=== PATIENT | female | born 1950 | race Caucasian/White ===

== ENCOUNTER 2022-01-03 09:59 | Outpatient (CLI) | payer MEDICARE, OTHER, SELFPAY ==
--- OUTSIDE RECORDS SUMMARY | 2021-12-01 09:37 | XMS_ITS | Continuity of Care Document ---
:1950 Author Allergies, Adverse Reactions, Alerts Allergen Type Severity Reaction Last Updated Verified Status No Known Drug Allergy Unknown July Yes Active Allergy 2021 Social History Smoking Status Status Start Date End Date Date of Observat ion Never smoked tobacco August 042021 (finding) 3:00pm Additional Data Assigned Sex Female Problems Active Problems Medical Problem Onset Date Status Obesity with body mass index greater Act lyn than 30 Breast cancer 2018 Active Pre-diabetes 2016 Active Osteopenia 2018 Active Health care directive on file September 10, 2014 Resolved History of appendectomy 1960 Resolved History of lumpectomy of left breast February 16, 2019 Res olved History of arthroscopic knee surgery June, Res olved History of sinus surgery 2011 Resolved History of hand surgery October 22, 2011 Resolved History of phacoemulsification of 2009 [facility] ed cataract of both eyes with intraocular lens implantation Inactive/Resolved Problems Medical Problem Onset Date Status Encounter for screening for Resolved COVID-19 Chest tightness Resolved Medications Medication Status Dose Units Route Directions Qty Days Start End Ins tructions Date Date Acetaminophen Active 650 MG PO As Needed (Tylenol 8 Hour Arthritis) 650 Mg TAB Calcium Active 1 TAB PO Twice A Day Carbonate-Cho lecalcife (Calcium Carbonate/D3) 1 Tab TAB Ibuprofen Active 200-40 MG PO Every 6 100 0 Hours as needed Magnesium Active 1 CAP PO As Needed Glycinate (Magnesium Glycinate 665 Mg) 1 Cap CAP Multiple Active 1 TAB PO Daily Vitamin (Multi Vitamin) 1 Tab TAB Omeprazole Active 20 MG PO Every August Morning 2021 11:42am Tamoxifen Active 20 MG PO Daily 06 February Citrate 2020 1:35pm Zoledronic Active Unknow IV Ever 6 Acid n Dose Months Amoxicillin/C Disconti 1 TAB PO Twice Daily 20 Februar M arch lavulanate nued For 10 Days y , , 2021 (Amoxicillin 2:53pm 10:56a & Pot m Clavulanate) 875 Mg/125 Mg TAB Amoxicillin/C Disconti 1 TAB PO Twice Daily August il lavulanate nued For 10 Days , , Potassium 2019 2019 (Amoxicillin 2:19pm 10:56a & Pot m Clavulanate) 875 Mg/125 Mg TAB Anastrozole Disconti 1 MG OR Daily 90 90 Decembe January nued r , , 2018 2020 6:21pm 12:52p m Anastrozole Disconti 1 MG OR Daily 90 90 Decembe Decemb nued r 9, er 2019 , 3:22pm 2018 6:21pm Calcium Disconti 600 MG PO Daily August Carbonate nued 2021 10:56a m Ferrous Disconti Unknow PO 3 X Weekly November Sulfate (Iron nued n Dose , (Ferrous 2020 Sulfate)) 1:08pm Unknown Strength TAB Fish Oil Disconti 2000 MG PO Daily January nued 2019 1:11pm Guaifenesin/C Disconti 1-2 TSP PO Every June a As needed for odeine nued Hours as , cough, Phosphate needed 2021, caution (Guaifenesin- 3:23pm 2021 sedat ing Codeine) 100 2:37pm Mg/10 Mg/5 Ml SOLN Influenza Disconti 0.7 ML IM Once 1 Virus Vac nued r 2nd, er Split High 2019 07, (Fluzone 10:09am 2019 High-Dose Pf 10:35a 2019 0.7 Ml) m 1 Inj INJ Influenza Disconti 0.5 ML IM Once Virus Vaccine nued er [place] Split , (Fluzone 2018 2018 High-Dose Pf 3:57pm 4:33pm 2018 0.5 Ml) 1 Inj INJ Naproxen Disconti 500 MG PO Twice Daily November nued With Meals r , 2019 10:25am 1:08pm Omeprazole Disconti 20 MG PO Every 60 June nued Morning , , 2021 2021 3:22pm 10:56a m Omeprazole Disconti 20 MG PO Daily nued y 2021 3:22pm Ondansetron Disconti 4 MG PO Every 8 August Hcl nued Hours as , , (Ondansetron needed 2019 2019 Odt) 4 Mg TAB 2:19pm 10:56a m Pneumococcal Disconti 0.5 ML IM Once 1 Polyvalent nued r , er Vaccine 2019 07, (Pneumovax 10:09am 2019) 25 10:35a Mcg/0.5 Ml m INJ Pneumococcal Disconti 0.5 ML IM Once Polyvalent nued er [place] Vaccine , , (Prevnar 13) 2018 2018 0.5 Ml INJ 3:58pm 4:33pm Probiotic Disconti 1 TAB OR Daily January Product nued , (Probiotic) 2019 CAP 1:11pm Turmeric Disconti Unknow PO Daily November (Curcuma nued n Dose , ) 2020 (Turmeric) 1:08pm Unknown Strength CAP Immunizations Immunization Event Date Not Given Dose Tour Consultant Lot Vac cine Reason Number Number Informatio n Statement (VIS) Deta il COVID-19 Moderna August 10, 2020 COVID-19 Moderna September 09, 2020 COVID-19 Moderna April 122020 Herpes Zoster July 112014 Influenza April 10, 6 2017 Influenza February 14 SANOFI 2018 Influenza April 11, SANOFI 2019 Influenza April 182020 Influenza February 082009 Influenza May 112012 Influenza March 10, 2014 Influenza July 16, 2016 Influenza May 14, 2016 Influenza April 11, 2019 Prevnar Adult February 08 [facility] [id number] 2018 Pneumovax Adult April 11, MERCK [id number] 2019 Shingrix December 08, 2019 Shingrix February 092019 Shingrix July Reason Tetanus/Diptheri February 04, 3 a 2011 Tetanus/Diptheri June 21, 1 a 2004 Tetanus/Diptheri December 03, 2 a 2005 Tdap February 04, 1 (adolescent/adul 2011 t) Advance Directives Advance Directive Response Recorded Date/Time Has patient completed a Yes August 04, 022 3:00pm Health Care Directive? Insurance Providers Guarantor Maverick Lau Address [address] [place] [id number] Contact Info. Home Phone: Payer Policy Id Coverage Subscriber's Subscriber Effective Expira tion Id Name Id Date Date Medicare [id number] Maverick [employer] [id number] Maverick Lau Plan of Treatment Future Tests Future scheduled test information is unavailable Pending Tests Pending diagnostic test information is unavailable Future Visits Future appointment information is unavailable Referrals to Other Providers Reason for Referral Start Provider Provider Contact Provider Address Referral Date Information Meaghan Cortez Work Phone: [facility] [address] [facility] [phone] Future Procedures Procedure Name Scheduled Date MARISELA Bilat Mammo Scrn Future Medications Future medication information is unavailable Patient Instructions See Additional Instructions Chest Pain (ED) Denosumab (By injection)
--- NOTE | 2022-01-03 10:15 | CRLHL7_ITS ---
For Patients: As a result of the Century Cures Act, medical imaging exams and procedure reports are released immediately into your electronic medical record. You may view this report before your referring provider. If you have questions, please contact your health care provider. BILATERAL MAMMOGRAM WITH COMPUTER-AIDED DETECTION AND TOMOSYNTHESIS TECHNIQUE: CC and MLO views were obtained. These mammographic images have been obtained using full-field digital technique. These mammographic images were interpreted with the benefit of computer-aided detection. Breast tomosynthesis was used in this interpretation. COMPARISON FILM: 01/02/21, 01/01/20, 12/26/18. FINDINGS: The breasts are heterogeneously dense, which may obscure small masses. IMPRESSION: There is no radiographic evidence for malignancy. ASSESSMENT: BI-RADS Category 2: Benign RECOMMENDATION: Routine screening mammogram in 1 year. A lay language report of this examination will be provided to the patient. Sukhwinder Crocker M.D. Diagnostic/Musculoskeletal Radiologist [email or web address] Transcribed: 9:[address]/Dictated by: Sukhwinder Crocker MD @ 01/03/2022 11:04:00 AM (Electronically Signed)
== END 2022-01-03 10:00 | disposition home or self-care (01) ==
LOC: MAMMO 10:01
PROVIDERS: PCP Internal Medicine; Visit Provider Internal Medicine
DX: Z12.31 Encounter for screening mammogram for malignant neoplasm of breast (principal); R92.2 Inconclusive mammogram
CPT/HCPCS: 77063; 77067

== ENCOUNTER 2022-02-02 10:21 | Outpatient (RCR) | payer MEDICARE, OTHER, SELFPAY ==
--- NOTE | 2022-01-30 11:55 | URNOTE ---
Received request for prior auth for [employer] ([id number]). Pt had Medicare primary. Prior authorization is not required as services are based on medical necessity.
[2022-02-02 11:05] LABS: Albumin* 3.9 g/dL (3.3-5.0); Chloride* 102 mmol/L (96-114); Potassium* 4.2 mmol/L (3.6-5.1); Sodium* 138 mmol/L (135-149)
[2022-02-02 11:07] LABS: Bilirubin Total* 0.4 mg/dL (0.1-1.5); Carbon Dioxide* 29 mmol/L (20-32); Creatinine* 0.9 mg/dL (0.5-1.5); Est. Creatinine Clearance* 47.78; Estimated Glomerular Filt Rate 69 ml/min
[2022-02-02 11:08] LABS: Alanine Aminotransferase* 20 U/L (4-35); Alkaline Phosphatase* 64 U/L (40-150); Aspartate Amino Transferase* 27 U/L (12-35); Blood Urea Nitrogen* 26 mg/dL (7-30); Calcium* 8.6 mg/dL (8.4-10.6); Glucose* 109 mg/dL (60-115); Total Protein* 6.9 g/dL (6.0-8.3)
[2022-02-02] MEDS: ZOLEDRONIC ACID 3.3 MG in 0.9 % SODIUM CHLORIDE 100 ml 100 ML 420 MG IVPB (12:34)
--- NOTE | 2022-07-23 14:42 | ONC.NURNOTE ---
Data Entry Email Processor called patient to schedule the patient, and she is currently in [place]. Patients appointment moved to August per provider and patient availability.
== END 2022-08-01 23:59 | disposition home or self-care (01) ==
LOC: CCIC 10:21
PROVIDERS: PCP Internal Medicine; Referring Provider Internal Medicine; Visit Provider Nurse Practitioner Family
DX: C50.912 Malignant neoplasm of unspecified site of left female breast (principal); Z17.0 Estrogen receptor positive status [ER+]; Z79.810 Long term (current) use of selective estrogen receptor modulators (SERMs)
CPT/HCPCS: 36415; 80053; 96374; 99212; 99214; J3489

== ENCOUNTER 2022-02-15 12:53 | Outpatient (CLI) | payer MEDICARE, OTHER, SELFPAY ==
--- NOTE | 2022-02-15 13:00 | CRLHL7_ITS ---
For Patients: As a result of the Century Cures Act, medical imaging exams and procedure reports are released immediately into your electronic medical record. You may view this report before your referring provider. If you have questions, please contact your health care provider. DXA BONE MINERAL DENSITY STUDY Current height (in): 66. Weight (lb): 186. Menopause age: 53. Ethnicity: White. 1. Have you had a previous hip or vertebral fracture? No. 2. Have you had any fractures during your adult life which did not result from significant trauma (e.g., auto accident)? No. 3. Did either of your parents have a hip fracture? No. 4. Do you smoke? No. 5. Have you ever taken Glucocorticoids? No. 6. Do you have rheumatoid arthritis? No. 7. Do you have secondary osteoporosis? No. 8. Do you drink 3 or more alcoholic drinks per day? No. 9. Are you being treated for osteoporosis? No. 10. Have you ever taken any of the following medications: Actonel, Evista, Fosamax, Miacalcin, Reclast, Boniva, Forteo, HRT (i.e. estrogen/hormone therapy), Protelos, Prolia, Vitamin D, Calcium, other ??? please specify. ANSWER: Yes, vitamin D, calcium. 11. Do you have any of the following medical conditions: Anorexia or bulimia, asthma or emphysema, end stage renal disease, hyperparathyroidism, any seizure disorders, cancer, inflammatory bowel diseases, hysterectomy, other ??? please specify. ANSWER: Yes, cancer. 12. What was your maximum height (inches)? 66. 13. Do you perform weight bearing exercise regularly? No. 14. Do you regularly consume dairy products? Yes. 15. Do you drink caffeinated beverages? Yes. 16. At what age did your period start? 13. 17. Are you premenopausal? No. 18. How many full term pregnancies have you had? 0. 19. Have you ever missed your period for more than 6 months in a row (not including or menopause)? No. TECHNIQUE: Bone mineral density study was performed using the [employer]. FINDINGS: The results of the study expressed as bone mineral density (BMD) are as follows: Lumbar spine L1 to L4: BMD: 1.214 g/cm2. T-score: 1.5. Z-score: 3.6. Neck Left: BMD: 0.650 g/cm2. T-score: -1.8. Z-score: -0.0. Right: BMD: 0.668 g/cm2. T-score: -1.6. Z-score: 0.1. Total Left: BMD: 0.854 g/cm2. T-score: -0.7. Z-score: 0.7. Right: BMD: 0.819 g/cm2. T-score: -1.0. Z-score: 0.4. IMPRESSION: Osteopenia. FRAX 10-year Fracture Risk Major Osteoporotic Fracture: 10 percent Hip Fracture: 1.5 percent Reported Risk Factors: [place] () Neck BMD = 0.650, BMI = 30.0 Yehuda Sumner M.D. Diagnostic Radiologist [email or web address] MICHELLE/Dictated by: Yehuda Sumner MD @ 02/15/2022 3:38:00 PM (Electronically Signed)
== END 2022-02-15 12:54 | disposition home or self-care (01) ==
LOC: RAD 12:54
PROVIDERS: PCP Internal Medicine; Visit Provider Nurse Practitioner Family
DX: Z85.3 Personal history of malignant neoplasm of breast (principal); Z79.811 Long term (current) use of aromatase inhibitors
CPT/HCPCS: 77080

== ENCOUNTER 2022-09-06 10:34 | Outpatient (CLI) | payer MEDICARE, OTHER, SELFPAY ==
--- NOTE | 2022-09-06 10:45 | CRLHL7_ITS ---
For Patients: As a result of the Cures Act, medical imaging exams and procedure reports are released immediately into your electronic medical record. You may view this report before your referring provider. If you have questions, please contact your health care provider. PLEASE SEE DIGITAL DIAGNOSTIC BILATERAL MAMMOGRAM PERFORMED SAME DAY CRL:nitish talbert/Dictated by: Jose Douglass MD @ 09/06/2022 12:11:00 PM (Electronically Signed)
--- NOTE | 2022-09-06 11:15 | US_ITS ---
Final Report Patient: MAVERICK PARKER Facility:?[facility] Patient ID:?[id number] :?[id number] Study:?XRay Breast Bilateral DIAGNOSTIC 3D W/CAD-09/06/2022 11:25:29 AM Ordering Physician:Pascual Foster Final Report: DIGITAL DIAGNOSTIC BILATERAL MAMMOGRAM USING TOMOSYNTHESIS AND COMPUTER-AIDED DETECTION LEFT BREAST ULTRASOUND INDICATION: 71-year-old female. History of LEFT-sided breast cancer. Lumpectomy. Radiation therapy. One or two subsequent LEFT breast biopsies which were benign. Questionable palpable abnormality upper outer LEFT breast not convincingly present today. TECHNIQUE: CC and MLO views were obtained. This distal study was evaluated with the assistance of computer-aided detection. Digital breast tomosynthesis utilized interpretation. COMPARISON: 01/03/2022. FINDINGS: The breasts are heterogeneously dense which may obscure small masses. There are postsurgical and post treatment changes of the LEFT breast from lumpectomy and radiation therapy. There is a biopsy clip deep to the nipple. There are small calcifications in the upper outer LEFT breast. Surgical clips are identified in the LEFT axilla. Nothing for malignancy on the RIGHT. No change on the RIGHT. No convincing change on the LEFT either. Ultrasound will performed for further evaluation. Please see ultrasound report from the same date. TECHNIQUE: Directed LEFT breast ultrasound with this radiologist present. FINDINGS: In the upper outer LEFT breast between the 1 and 2 o`clock position only normal breast tissue is identified. There is a subtle area of minimal shadowing corresponding to small microcalcifications identified on the mammogram. No underlying mass. These findings were discussed in detail with the patient. Annual mammography is recommended. BI-RADS Category 2: Benign A lay language report of this examination will be provided to the patient. Dictated by: Jose Douglass MD @09/06/2022 12:11:58 PM ronnj/Dictated by: Jose Douglass MD @ 09/06/2022 12:11:00 PM (Electronic Signature)
== END 2022-09-06 10:35 | disposition home or self-care (01) ==
LOC: MAMMO 10:35
PROVIDERS: PCP Internal Medicine; Visit Provider Physician Assistant
DX: Z85.3 Personal history of malignant neoplasm of breast; R92.0 Mammographic microcalcification found on diagnostic imaging of breast
CPT/HCPCS: 76642; 77065; 77066; G0279

== ENCOUNTER 2023-01-14 08:30 | Outpatient (RCR) | payer MEDICARE, OTHER, SELFPAY ==
[2022-08-23 13:39] LABS: Albumin* 4.1 g/dL (3.3-5.0)
[2022-08-23 13:40] LABS: Chloride* 103 mmol/L (96-114); Potassium* 4.3 mmol/L (3.6-5.1); Sodium* 140 mmol/L (135-149)
[2022-08-23 13:42] LABS: Alkaline Phosphatase* 59 U/L (40-150); Aspartate Amino Transferase* 29 U/L (12-35); Bilirubin Total* 0.4 mg/dL (0.1-1.5); Carbon Dioxide* 33 mmol/L (20-32); Creatinine* 0.9 mg/dL (0.5-1.5); Estimated Glomerular Filt Rate 69 ml/min; Total Protein* 7.2 g/dL (6.0-8.3)
[2022-08-23 13:43] LABS: Alanine Aminotransferase* 26 U/L (4-35); Blood Urea Nitrogen* 21 mg/dL (7-30); Calcium* 8.8 mg/dL (8.4-10.6); Glucose* 113 mg/dL (60-115)
[2022-08-23] MEDS: ZOLEDRONIC ACID 4 MG in 0.9 % SODIUM CHLORIDE 100 ml 100 ML 420 MG IVPB (14:30)
--- NOTE | 2022-08-27 15:53 | ONC.NURNOTE ---
Patient called today to request a PT referral for myofascia therapy related to the side effects of the tamoxifen on the sides of her thighs and upper arms. She stated she saw Shana Rivas'Brien last week and they talked about the side effects of Tamoxifen but did not have enough time to talk about this option. She stated she did some research and saw a few PTs in [place] are trained in doing this. She would greatly appreciate a referral for this.
== END 2023-02-19 23:59 | disposition home or self-care (01) ==
LOC: CCIC 08:30
PROVIDERS: Nurse Practitioner Family; PCP Internal Medicine; Referring Provider Internal Medicine; Visit Provider Internal Medicine Hematology & Oncology
DX: C50.412 Malignant neoplasm of upper-outer quadrant of left female breast (principal); Z17.0 Estrogen receptor positive status [ER+]; Z79.810 Long term (current) use of selective estrogen receptor modulators (SERMs); M85.80 Other specified disorders of bone density and structure, unspecified site; R25.2 Cramp and spasm; N63.0 Unspecified lump in unspecified breast
CPT/HCPCS: 36415; 80053; 96374; 99212; 99214; 99215; J3489

== ENCOUNTER 2023-04-02 14:25 | Outpatient (CLI) | payer MEDICARE, OTHER, SELFPAY ==
--- NOTE | 2023-04-02 14:40 | CRLHL7_ITS ---
For Patients: As a result of the Century Cures Act, medical imaging exams and procedure reports are released immediately into your electronic medical record. You may view this report before your referring provider. If you have questions, please contact your health care provider. BILATERAL SCREENING MAMMOGRAM WITH COMPUTER-AIDED DETECTION AND TOMOSYNTHESIS TECHNIQUE: CC and MLO views were obtained. These mammographic images have been obtained using full-field digital technique. These mammographic images were interpreted with the benefit of computer-aided detection. Breast Tomosynthesis was used in this interpretation. COMPARISON FILM: 01/03/22 screening, 09/06/22 Diagnostic, 01/02/21 Diagnostic. FINDINGS: The breasts are heterogeneously dense, which may obscure small masses IMPRESSION: There is no radiographic evidence for malignancy. ASSESSMENT: BI-RADS Category 2: Benign RECOMMENDATION: Routine screening mammogram in 1 year. A lay language report of this examination will be provided to the patient. Yehuda Sumner M.D. Diagnostic Radiologist [email or web address] MICHELLE/Dictated by: Yehuda Sumner MD @ 04/03/2023 12:17:00 PM (Electronically Signed)
== END 2023-04-02 14:26 | disposition home or self-care (01) ==
LOC: MAMMO 14:26
PROVIDERS: PCP Internal Medicine; Visit Provider Internal Medicine Hematology & Oncology
DX: Z12.31 Encounter for screening mammogram for malignant neoplasm of breast (principal); R92.2 Inconclusive mammogram
CPT/HCPCS: 77063; 77067

== ENCOUNTER 2023-05-08 09:30 | Outpatient (RCR) | payer MEDICARE, OTHER, SELFPAY ==
--- NOTE | 2022-12-24 12:05 | PT.OPEX ---
PT [place] Outpatient Eval PT [facility] Outpatient Eval Start: 12/24/22 07:09 Freq: Status: Active Protocol: Document 12/24/22 07:15 RAVI (Rec: 12/24/22 07:20 RAVI [id number]) E-signed By Shantel Carrera PT Physical Therapy Outpatient Evaluation Insurance Information Recert Due Date 03/20/23 Insurance Name Medicare B Medical Diagnosis Malignant Neoplasm of Lt Breast upper quadrant (s/p 4 years) Invasive Ductal Carcinoma with [place] lymph node biopsy and excision. Myofascial restrictions secondary to side effects form endocrine therapy p/o breast CA Treating Diagnosis Gross full body myofascial restrictions secondary to terminal gauger endocrine therapy p/o breast CA Referring Shana Ghosh Judith reports finding lump during regular check up 2018. With cont testing, she was DX with and underwent an Invasive Ductal Carcinoma with [place] lymph node excision on 02/16/2019. She received radiation for 19 sessions p/o and continues with Tamoxifin, as she did not tolerate Aromatiase Inhibitor very well . Currently, I feel like I have a lot of tension at lateral thighs, inner calf abd upper arms, some at my buttocks too. It keeps me awake too. Most of the time it is just sore to touch, but sometimes it is more. My general feeling after I wake up after 3 hours of sleep, my mm and joints feel good but my skin feels like it is too tight. Most days I drink about 60 oz of water. I work out in the water and swim, walk, pilates and yoga. Pain Comments Inner Rt thigh hurts the most. Date of Last Physician Visit 12/10/22 Current Work Status Retired Precautions Treatment Precautions/Contraindications Cataract surgery, Hand surgery , Sinus Surgery, Knee Scope Weight Bearing Status Full Weight Bearing Therapy Limitations/Systems Review Vision Objective Range of Motion [place] trunk SB finger tips 2 from lateral knee joint line. Slight loss of range Palpation Significant myofascial tightness gross body Assessment Assessment/Impression 72 yo female DX of Malignant Neoplasm of Lt Breast, upper quadrant with Invasive ductal Carcinoma and [place] Lymph node excision in Feb 2019. She reports having p/o myofascial knots, cramps and stiffness full body - but greatest at Rt inner thigh, Lt inner calf and austen quad/ITB areas. She has very good full body flexibility and strngth. Palpably, she does have myofascial restrictions at areas noted. This may be residual to reduced water intake (she drinks about 45-60 oz of water, but also 2-3 cups of coffee per day) and secondary to medications s/p CA and radiation. She could not tolerate the aromatase inhibitor, and is now stating she is having some side effects from Tamoxifen terminal gauger use. She will benefit from continued skilled physical therapy to complete foam rolling, cupping, TASTM, DTM and education on fluid intake. Thank you for this referral. Plan of Care Rehabilitation Potential Good Physical Therapy Goals In 8-10 visits, Judith will be able to report: 1. Reduced sensation of skin tightness by at least 50% 2. Improved water intake from current 30-45 to at least 60 oz (negating coffee) 3. Sleep up to 4 hours without awakening due to cramping/mm knot sensation of pain greater than 4/10 4. IND in proper technique of foam roller and/or cupping tools Coordination/Communication With Referral Source Treatment Plan/Direct Interventions Joint Mobilization,Manual Therapy,Neuromuscular Re-ed, Self-Care/Home Management, Therapeutic Activities, Therapeutic Exercises Frequency/Duration 1 Day per week for 10 visits Patient Will Be Discharged From Therapy Completion of LTG(s),Skills Plateau,Independent w/HEP, Independently Progressing Evaluation Billing Untimed Code Treatment Minutes 26 Complexity Moderate Certification Information Initial Certification Date 12/24/22 Ending Certification Date 03/20/23 Provider Signature Shows Agreement With POC & Medical Necessity Physician Signature & Date Requested Please Sign/Date Here Physician Comment/Change : Physician NPI Number #
--- NOTE | 2022-12-24 12:06 | PT.OPEX ---
PT [place] Outpatient Eval PT [facility] Outpatient Eval Start: 12/24/22 07:09 Freq: Status: Active Protocol: Document 12/24/22 07:15 RAVI (Rec: 12/24/22 07:20 RAVI [id number]) E-signed By Shantel Carrera PT Physical Therapy Outpatient Evaluation Insurance Information Recert Due Date 03/20/23 Insurance Name Medicare B Medical Diagnosis Malignant Neoplasm of Lt Breast upper quadrant (s/p 4 years) Invasive Ductal Carcinoma with [place] lymph node biopsy and excision. Myofascial restrictions secondary to side effects form endocrine therapy p/o breast CA Treating Diagnosis Gross full body myofascial restrictions secondary to rat exterminator endocrine therapy p/o breast CA Referring Shana Ghosh Judith reports finding lump during regular check up 2018. With cont testing, she was DX with and underwent an Invasive Ductal Carcinoma with [place] lymph node excision on 02/16/2019. She received radiation for 19 sessions p/o and continues with Tamoxifin, as she did not tolerate Aromatiase Inhibitor very well . Currently, I feel like I have a lot of tension at lateral thighs, inner calf abd upper arms, some at my buttocks too. It keeps me awake too. Most of the time it is just sore to touch, but sometimes it is more. My general feeling after I wake up after 3 hours of sleep, my mm and joints feel good but my skin feels like it is too tight. Most days I drink about 60 oz of water. I work out in the water and swim, walk, pilates and yoga. Pain Comments Inner Rt thigh hurts the most. Date of Last Physician Visit 12/10/22 Current Work Status Retired Precautions Treatment Precautions/Contraindications Cataract surgery, Hand surgery , Sinus Surgery, Knee Scope Weight Bearing Status Full Weight Bearing Therapy Limitations/Systems Review Vision Objective Range of Motion [place] trunk SB finger tips 2 from lateral knee joint line. Slight loss of range Palpation Significant myofascial tightness gross body Assessment Assessment/Impression 72 yo female DX of Malignant Neoplasm of Lt Breast, upper quadrant with Invasive ductal Carcinoma and [place] Lymph node excision in Feb 2019. She reports having p/o myofascial knots, cramps and stiffness full body - but greatest at Rt inner thigh, Lt inner calf and austen quad/ITB areas. She has very good full body flexibility and strngth. Palpably, she does have myofascial restrictions at areas noted. This may be residual to reduced water intake (she drinks about 45-60 oz of water, but also 2-3 cups of coffee per day) and secondary to medications s/p CA and radiation. She could not tolerate the aromatase inhibitor, and is now stating she is having some side effects from Tamoxifen rat exterminator use. She will benefit from continued skilled physical therapy to complete foam rolling, cupping, TASTM, DTM and education on fluid intake. Thank you for this referral. Plan of Care Rehabilitation Potential Good Physical Therapy Goals In 8-10 visits, Judith will be able to report: 1. Reduced sensation of skin tightness by at least 50% 2. Improved water intake from current 30-45 to at least 60 oz (negating coffee) 3. Sleep up to 4 hours without awakening due to cramping/mm knot sensation of pain greater than 4/10 4. IND in proper technique of foam roller and/or cupping tools Coordination/Communication With Referral Source Treatment Plan/Direct Interventions Joint Mobilization,Manual Therapy,Neuromuscular Re-ed, Self-Care/Home Management, Therapeutic Activities, Therapeutic Exercises Frequency/Duration 1 Day per week for 10 visits Patient Will Be Discharged From Therapy Completion of LTG(s),Skills Plateau,Independent w/HEP, Independently Progressing Evaluation Billing Untimed Code Treatment Minutes 26 Complexity Moderate Certification Information Initial Certification Date 12/24/22 Ending Certification Date 03/20/23 Provider Signature Shows Agreement With POC & Medical Necessity Physician Signature & Date Requested Please Sign/Date Here Physician Comment/Change : Physician NPI Number #
--- NOTE | 2022-12-24 12:06 | PT.OPEX ---
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 Myofascial restrictions secondary to side effects form endocrine therapy p/o breast CA Treating Diagnosis Gross full body myofascial restrictions secondary to superintendent container terminal endocrine therapy p/o breast CA Referring Shana Ghosh Judith reports finding lump during regular check up 2018. With cont testing, she was DX with and underwent an Invasive Ductal Carcinoma with Gooding lymph node excision on 02/16/2019. She received radiation for 19 sessions p/o and continues with Tamoxifin, as she did not tolerate Aromatiase Inhibitor very well . Currently, I feel like I have a lot of tension at lateral thighs, inner calf abd upper arms, some at my buttocks too. It keeps me awake too. Most of the time it is just sore to touch, but sometimes it is more. My general feeling after I wake up after 3 hours of sleep, my mm and joints feel good but my skin feels like it is too tight. Most days I drink about 60 oz of water. I work out in the water and swim, walk, pilates and yoga. Pain Comments Inner Rt thigh hurts the most. Date of Last Physician Visit 12/10/22 Current Work Status Retired Precautions Treatment Precautions/Contraindications Cataract surgery, Hand surgery , Sinus Surgery, Knee Scope Weight Bearing Status Full Weight Bearing Therapy Limitations/Systems Review Vision Objective Range of Motion Austen trunk SB finger tips 2 from lateral knee joint line. Slight loss of range Palpation Significant myofascial tightness gross body Assessment Assessment/Impression 72 yo female DX of Malignant Neoplasm of Lt Breast, upper quadrant with Invasive ductal Carcinoma and Gooding Lymph node excision in Feb 2019. She reports having p/o myofascial knots, cramps and stiffness full body - but greatest at Rt inner thigh, Lt inner calf and austen quad/ITB areas. She has very good full body flexibility and strngth. Palpably, she does have myofascial restrictions at areas noted. This may be residual to reduced water intake (she drinks about 45-60 oz of water, but also 2-3 cups of coffee per day) and secondary to medications s/p CA and radiation. She could not tolerate the aromatase inhibitor, and is now stating she is having some side effects from Tamoxifen superintendent container terminal use. She will benefit from continued skilled physical therapy to complete foam rolling, cupping, TASTM, DTM and education on fluid intake. Thank you for this referral. Plan of Care Rehabilitation Potential Good Physical Therapy Goals In 8-10 visits, Judith will be able to report: 1. Reduced sensation of skin tightness by at least 50% 2. Improved water intake from current 30-45 to at least 60 oz (negating coffee) 3. Sleep up to 4 hours without awakening due to cramping/mm knot sensation of pain greater than 4/10 4. IND in proper technique of foam roller and/or cupping tools Coordination/Communication With Referral Source Treatment Plan/Direct Interventions Joint Mobilization,Manual Therapy,Neuromuscular Re-ed, Self-Care/Home Management, Therapeutic Activities, Therapeutic Exercises Frequency/Duration 1 Day per week for 10 visits Patient Will Be Discharged From Therapy Completion of LTG(s),Skills Plateau,Independent w/HEP, Independently Progressing Evaluation Billing Untimed Code Treatment Minutes 26 Complexity Moderate Certification Information Initial Certification Date 12/24/22 Ending Certification Date 03/20/23 Provider Signature Shows Agreement With POC & Medical Necessity Physician Signature & Date Requested Please Sign/Date Here Physician Comment/Change : Physician NPI Number #
== END 2023-09-05 23:59 | disposition home or self-care (01) ==
PROVIDERS: PCP Internal Medicine; Visit Provider Nurse Practitioner Family
DX: C50.412 Malignant neoplasm of upper-outer quadrant of left female breast (principal); Z17.0 Estrogen receptor positive status [ER+]; Z79.810 Long term (current) use of selective estrogen receptor modulators (SERMs); Z51.89 Encounter for other specified aftercare
CPT/HCPCS: 97110; 97140; 97162; A0425; A0428

== ENCOUNTER 2023-07-01 10:00 | Outpatient (RCR) | payer MEDICARE, OTHER, SELFPAY ==
--- NOTE | 2023-04-01 11:42 | URNOTE ---
Received request for prior authorization for [employer] ([id number]). Pt has Medicare primary. Prior authorization is not required as services are based on medical necessity.
[2023-04-18 13:41] VITALS: BP 133/76; PULSE 68; RESP 16; TEMP 36.5; O2SAT 99
[2023-04-18 14:21] LABS: Calcium* 9.1 mg/dL (8.4-10.6); Creatinine* 0.8 mg/dL (0.5-1.5); Estimated Glomerular Filt Rate 79 ml/min
[2023-04-18] MEDS: ZOLEDRONIC ACID 4 MG in 0.9 % SODIUM CHLORIDE 100 ml 100 ML 420 MG IVPB (14:51)
== END 2023-09-28 23:59 | disposition home or self-care (01) ==
LOC: CCIC 10:00
PROVIDERS: PCP Internal Medicine; Referring Provider Internal Medicine; Visit Provider Physician Assistant
DX: C50.412 Malignant neoplasm of upper-outer quadrant of left female breast (principal); Z17.0 Estrogen receptor positive status [ER+]; Z79.811 Long term (current) use of aromatase inhibitors; Z85.3 Personal history of malignant neoplasm of breast; M85.80 Other specified disorders of bone density and structure, unspecified site
CPT/HCPCS: 36415; 82310; 82565; 96374; 99212; 99214; 99215; G0463; J3489

== ENCOUNTER 2023-10-17 12:50 | Outpatient (RCR) | payer MEDICARE, OTHER, SELFPAY ==
[2023-10-17 13:25] LABS: Creatinine* 0.8 mg/dL (0.5-1.5); Estimated Glomerular Filt Rate 79 ml/min
[2023-10-17 13:26] LABS: Calcium* 9.3 mg/dL (8.4-10.6)
[2023-10-17] MEDS: ZOLEDRONIC ACID 4 MG in 0.9 % SODIUM CHLORIDE 100 ml 100 ML 420 MG IVPB (14:51)
--- NOTE | 2023-12-25 13:52 | ONC.NURNOTE ---
Addendum entered by Dione Wilson RN 12/25/23 15:21: Pt called back and is aware of results. Original Note: Left message for pt to call back for dexa and mammogram results. Per Coleen, Dexa shows osteopenia with overall improvement in bone density compared to 2 years ago. Will repeat in 2 years. Diagnostic mammogram and ultrasound are negative for recurrent breast cancer. Will plan repeat screening mammogram in December 2024.
== END 2024-04-14 23:59 | disposition home or self-care (01) ==
LOC: CCIC 12:50
PROVIDERS: PCP Internal Medicine; Referring Provider Internal Medicine; Visit Provider Physician Assistant
DX: C50.412 Malignant neoplasm of upper-outer quadrant of left female breast (principal); Z17.0 Estrogen receptor positive status [ER+]; Z79.811 Long term (current) use of aromatase inhibitors; Z85.3 Personal history of malignant neoplasm of breast; M85.80 Other specified disorders of bone density and structure, unspecified site
CPT/HCPCS: 36415; 82310; 82565; 96374; 99214; G0463; J3489

== ENCOUNTER 2023-12-02 15:11 | Outpatient (CLI) | payer MEDICARE, OTHER, SELFPAY ==
--- OUTSIDE RECORDS SUMMARY | 2023-12-02 15:14 | XMS_ITS | Clinical Summary ---
Author Organization [facility] Address [place], [place] [address] Care Team Providers Care Cullet Trucker Name Role Phone Meaghan Cortez MD Primary Care Provider +1- [phone] Allergies Active Allergy Reactions Criticality Noted Date Comments Adhesive *Unknown Medium 02/16/2019 Redness after removal Medications Medication Sig Dispensed Refills Start Date End Date Status calcium carbonate-vitamin D3 500 mg-5 mcg (200 unit) pwpk Mix in liquid then take by mouth. Active letrozole (FEMARA) 2.5 mg tablet Take 2.5 mg by mouth once daily. 01/14/2023 Active calcium carbonate (TUMS) 200 mg calcium (500 mg) chewable tablet Chew 1 Tablet by mouth. Active ibuprofen (ADVIL; MOTRIN) 200 mg tablet Take 400 mg by mouth. Active codeine-guaiFENesin (ROBITUSSIN AC) 10-100 mg/5 mL liquidIndications:Acut e cough Take 5-10 mL by mouth every 4 hours as needed for cough. Max dose 60 mL per 24 hrs. 100 mL 02/03/2023 Active Family History Medical History Relation Name Comments Cancer-breast Maternal Aunt x 2 Cancer-breast Sister 55 Relation Name Status Comments Maternal Aunt x 2 Alive Sister 55 Alive Social History Tobacco Use Types Packs/Day Years Used Date Smoking Tobacco: Never Passive Smoke Exposure: Never Smokeless Tobacco: Never Tobacco Cessation:Counseling Given: Not Answered Alcohol Use Standard Drinks/Week Comments Not Currently 0 (1 standard drink = 0.6 oz pur e alcohol) Sex and Gender Information Value Date Recorded Sex Assigned at Not on file Gender Identity Not on file Sexual Orientation Not on file Obstetrics History Last Filed Vital Signs Vital Sign Reading Time Taken Comments Blood Pressure 158/92 02/03/2023 4:38 PM CDT Pulse 84 02/03/2023 4:38 PM CDT Temperature 36.6 ??C (97.9 ??F) 02/03/2023 4:38 PM CD T Respiratory Rate 18 02/03/2023 4:38 PM CDT Oxygen Saturation 98% 02/03/2023 4:38 PM CDT Inhaled Oxygen Concentration - - Weight 83.9 kg (185 lb) 02/03/2023 4:38 PM CDT Height 167.6 cm (5' 6) 02/03/2023 4:38 PM CDT Body Mass Index 29.86 02/03/2023 4:38 PM CDT Plan of Treatment Health Maintenance Due Date Last Done Comments Tdap 11/26/1963 Depression screening for age 12+ 1964 Hepatitis C screening for ag e 18-79 1970 Tetanus booster 1972 Colonoscopy through age 75 1997 Lipids for age 45-75 1997 Zoster (shingles) series for age 50+ (1 of 2) 2002 DEXA/DXA scan for age 65+ 2017 Pneumococcal series for age 65+ (1 of 1 - PCV) 2017 Mammogram for age 45-75 12/04/2019 12/03/2018 COVID-19 vaccine series ( season) 2023 01/11/2023, 02/26/2022, 10/27/2021, Additional history exists BMI (ht and wt on same day) for age 18+ 02/04/2024 02/03/2023 Influenza for age 65+ 02/09/2024 Procedures Procedure Name Priority Date/Time Associated Diagnosis Comments XR MAMMO BILAT DIAGNOSTIC Routine 12/03/2018 1:44 PM CDT Left breast lump from Last 3 Months or Most Recently Relevant to Health Maintenance Results * XR MAMMO BILAT DIAGNOSTIC (12/03/2018 1:44 PM CDT) Anatomical Region Laterality Modality BREASTS, Breast Left, Breast Right Bilateral Mammography, Other 12/03/2018 2:28 PM CDT Impressions 12/03/2018 3:34 PM CDT Highly suspicious palpable mass in the LEFT breast. RECOMMENDATIONS: Recommend ultrasound-guided biopsy. Findings and recommendations were discussed with the patient and Rosalba Flores CNP. The biopsy was performed immediately after this exam. Please see that report for further details. BI-RADS Category 5: Highly Suggestive of Malignancy Dictated by: Rayo Contreras MD @12/03/2018 2:28:25 PM / CRL:nitish Narrative 12/03/2018 3:34 PM CDT DIGITAL DIAGNOSTIC BILATERAL MAMMOGRAM USING COMPUTER-AIDED DETECTION, 12/03/2018 LEFT BREAST ULTRASOUND, 12/03/2018 CLINICAL HISTORY: 68-year-old woman with palpable lump in the superior periareolar LEFT breast. The lump was initially itchy and tender but has decreased in size and has become less symptomatic. COMPARISON: None available. TECHNIQUE: Digital BILATERAL mammogram in full-field CC and MLO projections with CAD, spot compression LEFT CC and MLO. Real-time ultrasound imaging of LEFT breast with imaging documentation. Scanning was performed by both the technologist and the radiologist. BREAST COMPOSITION: Heterogeneously dense. FINDINGS: LEFT Mammogram: 1.8 cm irregular possibly spiculated mass 10 to 11 o'clock position of the LEFT breast, anterior third, 4.6 cm from the nipple, adjacent to the palpable marker. LEFT Breast Ultrasound: 1.4 x 1.5 x 1.2 cm hypoechoic mass with irregular and microlobulated borders at the 11 to 12 o'clock position of the LEFT breast, 1 cm from the nipple. This corresponds to the palpable and mammographic abnormality. This is highly suspicious for malignancy. Rosalba Flores NP MAMMO from Last 3 Months or Most Recently Relevant to Health Maintenance Care Teams Cullet Trucker Relationship Specialty Start Date End Date Meaghan Cortez MD [address] [place] [address] PCP - General 02/03/23
--- NOTE | 2023-12-02 15:30 | MR_ITS ---
[address] [address] Phone:?[phone] Fax:?[phone] Referring Physician Information: Eric Valdez M.D. [id number] [facility] [address] Phone:?[phone] Fax:?[phone] Patient:Jeff Lau D.O.B:?1950 Sex:?Female Phone:?[phone] [facility] MRN:?[id number] Exam Date:?12/02/2023 EXAM: MRI of the RIGHT SHOULDER WITHOUT CONTRAST CLINICAL HISTORY: Unspecified rotator cuff tear or rupture. Suspect rotator cuff tear of the right shoulder. COMPARISONS: Plain radiographs 11/22/2023. TECHNICAL: MRI sequences of the right shoulder: Axials: PD, T2 Coronals: PD, STIR, T2 Sagittals: PD, T2 SEDATION: None CONTRAST: None FINDINGS: Bones: No fracture or suspicious bone marrow signal abnormality. Coracoacromial arch: Acromion: No os acromiale. There is a subacromial enthesophyte. Acromiohumeral space: The bony distance is narrowed in the setting of full- thickness supraspinatus tendon tear. Acromioclavicular joint: Marked degenerative changes with marked inferior osteophytosis. Coracoclavicular ligament: The coracoclavicular ligament is intact. Rotator cuff muscles/tendons: Supraspinatus: 2.0 cm in AP dimension full-thickness tear of the supraspinatus tendon insertion with proximal/medial tendon retraction to the medial aspect of the humeral head. No muscular atrophy. Infraspinatus: Mild tendinopathy. No muscular atrophy. Teres minor: The teres minor tendon and muscle are intact. Subscapularis: Marked tendinopathy. No muscular atrophy. Labrum and glenohumeral joint: There is superior, posterosuperior, and posterior labral fraying. Small glenohumeral joint effusion. No discrete chondral defect or subchondral bone marrow edema/cystic change is seen. Slight subchondral cystic change within the anteroinferior portion of the glenoid likely reflects overlying fissuring although it must be noted that the cartilage is not optimally evaluated directly by this nonarthrogram study. Proximal biceps tendon, long head and short heads: Mild tendinopathy within the intra-articular portion of the long head of the biceps tendon. The short head is intact. Bursae: Subacromial/subdeltoid: The presence of fluid is not expected given full- thickness supraspinatus tendon tear. Subcoracoid: Marked bursitis. IMPRESSION: 1. 2.0 cm in AP dimension full-thickness tear of the supraspinatus tendon insertion with proximal/medial tendon retraction to the medial aspect of the humeral head. 2. Marked subscapular tendinopathy. 3. Mild infraspinatus tendinopathy. 4. No rotator cuff muscular atrophy. 5. Mild tendinopathy within the intra-articular portion of the long head of the biceps tendon. 6. Subacromial enthesophyte. 7. Marked acromioclavicular joint osteoarthritis with marked inferior osteophytosis. 8. Slight subchondral cystic change within the anteroinferior portion of the glenoid likely reflects overlying fissuring although it must be noted that the cartilage is not optimally evaluated directly by this nonarthrogram study. Superior, posterosuperior, and posterior labral fraying. 9. Marked subcoracoid bursitis. 10. Small glenohumeral joint effusion. RCB Electronically signed on 12/03/2023 9:12:00 AM by Herber Mcelroy M.D.
== END 2023-12-02 15:12 | disposition home or self-care (01) ==
LOC: MRI 15:12
PROVIDERS: PCP Internal Medicine; Visit Provider Orthopaedic Surgery Sports Medicine
DX: M25.511 Pain in right shoulder (principal); M75.101 Unspecified rotator cuff tear or rupture of right shoulder, not specified as traumatic; M19.011 Primary osteoarthritis, right shoulder; M75.51 Bursitis of right shoulder; M25.411 Effusion, right shoulder
CPT/HCPCS: 73221

== ENCOUNTER 2023-12-09 09:33 | Outpatient (CLI) | payer MEDICARE, OTHER, SELFPAY ==
--- NOTE | 2023-12-09 09:45 | CRLHL7_ITS ---
For Patients: As a result of the Century Cures Act, medical imaging exams and procedure reports are released immediately into your electronic medical record. You may view this report before your referring provider. If you have questions, please contact your health care provider. DIGITAL DIAGNOSTIC BILATERAL MAMMOGRAM USING TOMOSYNTHESIS AND COMPUTER-AIDED DETECTION LEFT BREAST ULTRASOUND CLINICAL HISTORY: LEFT breast lump. COMPARISON: 04/02/2023, 09/06/2022, 01/03/2022, 01/02/2021. TECHNIQUE: Digital BILATERAL mammogram in four projections with computer-aided detection. Tomosynthesis was used in this interpretation. Real-time ultrasound imaging of LEFT breast with imaging documentation. BREAST COMPOSITION: There are areas of scattered fibroglandular density. FINDINGS: 3D CC/MLO bilateral mammogram images submitted. Posttreatment changes LEFT breast and the subareolar region are similar including benign dystrophic calcification. No suspicious findings or change from prior studies. Unremarkable RIGHT breast mammogram images. Targeted LEFT breast ultrasound 1 o`clock 1 cm from the nipple performed. Postop changes are present with persistent lobular nonvascular structure measuring 2.0 x 1.2 x 2.0 cm, unchanged from multiple prior ultrasound examinations. IMPRESSION: Stable lobular scar tissue behind the LEFT nipple without suspicious findings. RECOMMENDATIONS: Clinical follow-up. If clinically indicated, surgical referral could be considered. Results and recommendations discussed with the patient. BI-RADS Category 2: Benign A lay language report of this examination will be provided to the patient. Dictated by Yehuda Sumner MD @ 12/09/2023 11:45:53 AM jj/Dictated by: Yehuda Sumner MD @ 12/09/2023 11:46:00 AM (Electronically Signed)
--- OUTSIDE RECORDS SUMMARY | 2023-12-09 09:51 | XMS_ITS | Clinical Summary ---
Author Organization [facility] Address [place], [place] [address] Care Team Providers Care Clock And Watch Assembler Name Role Phone Meaghan Cortez MD Primary Care Provider +1- [phone] Allergies Active Allergy Reactions Criticality Noted Date [...] Recently Relevant to Health Maintenance Care Teams Clock And Watch Assembler Relationship Specialty Start Date End Date Meaghan Cortez MD [address] [place] [address] PCP - General 02/03/23
--- NOTE | 2023-12-09 10:15 | CRLHL7_ITS ---
For Patients: As a result of the Cures Act, medical imaging exams and procedure reports are released immediately into your electronic medical record. You may view this report before your referring provider. If you have questions, please contact your health care provider. Please see digital diagnostic BILATERAL mammogram performed same day. CRL:shayan talbert/Dictated by: Yehuda Sumner MD @ 12/09/2023 11:46:00 AM SP/Dictated by: Yheuda Sumner MD @ 12/09/2023 11:43:00 AM (Electronically Signed)
== END 2023-12-09 09:34 | disposition home or self-care (01) ==
LOC: MAMMO 09:34
PROVIDERS: PCP Internal Medicine; Visit Provider Physician Assistant
DX: N63.20 Unspecified lump in the left breast, unspecified quadrant (principal); N64.4 Mastodynia; C50.919 Malignant neoplasm of unspecified site of unspecified female breast
CPT/HCPCS: 76642; 77066; G0279

== ENCOUNTER 2023-12-18 12:35 | Outpatient (CLI) | payer MEDICARE, OTHER, SELFPAY ==
--- OUTSIDE RECORDS SUMMARY | 2023-12-18 12:44 | XMS_ITS | Clinical Summary ---
Author Organization [facility] Address [place], [place] [address] Care Team Providers Care Back End Architect Name Role Phone Meaghan Cortez MD Primary Care Provider +1- [phone] Allergies Active Allergy Reactions Criticality Noted Date [...] Recently Relevant to Health Maintenance Care Teams Back End Architect Relationship Specialty Start Date End Date Meaghan Cortez MD [address] [place] [address] PCP - General 02/03/23
--- NOTE | 2023-12-18 13:00 | CRLHL7_ITS ---
For Patients: As a result of the Century Cures Act, medical imaging exams and procedure reports are released immediately into your electronic medical record. You may view this report before your referring provider. If you have questions, please contact your health care provider. DXA BONE MINERAL DENSITY STUDY Reason for exam: Aromatase inhibitor. Osteopenia. Current height (in): 61. Weight (lb): 192. Menopause age: 67. Ethnicity: White. 1. Have you had a previous hip or vertebral fracture? No. 2. Have you had any fractures during your adult life which did not result from significant trauma (e.g., auto accident)? Yes. 3. Did either of your parents have a hip fracture? No. 4. Do you smoke? No. 5. Have you ever taken Glucocorticoids? No. 6. Do you have rheumatoid arthritis? No. 7. Do you have secondary osteoporosis? No. 8. Do you drink 3 or more alcoholic drinks per day? No. 9. Are you being treated for osteoporosis? No. 10. Have you ever taken any of the following medications: Actonel, Evista, Fosamax, Miacalcin, Reclast, Boniva, Forteo, HRT (i.e., estrogen/hormone therapy), Protelos, Prolia, Vitamin D, Calcium, other ??? please specify. ANSWER: Yes, vitamin D and calcium. 11. Do you have any of the following medical conditions: Anorexia or bulimia, asthma or emphysema, end stage renal disease, hyperparathyroidism, any seizure disorders, cancer, inflammatory bowel diseases, hysterectomy, other ??? please specify. ANSWER: Yes, cancer. 12. What was your maximum height (inches)? 66. 13. Do you perform weight bearing exercise regularly? Yes. 14. Do you regularly consume dairy products? Yes. 15. Do you drink caffeinated beverages? Yes. 16. At what age did your period start? 14. 17. Are you premenopausal? No. 18. How many full-term pregnancies have you had? 0. 19. Have you ever missed your period for more than 6 months in a row (not including or menopause)? No. TECHNIQUE: Bone mineral density study was performed using the Estrogen Gene Test Wi. FINDINGS: The results of the study expressed as bone mineral density (BMD) are as follows: Lumbar spine L1 to L3: BMD: 1.223 g/cm2. T-score: 1.9. Z-score: 4.0 Neck Left: BMD: 0.649 g/cm2. T-score: -1.8. Z-score: 0.0 Right: BMD: 0.674 g/cm2. T-score: -1.6. Z-score: 0.3 Total Left: BMD: 0.879 g/cm2. T-score: -0.5. Z-score: 1.0 Right: BMD: 0.830 g/cm2. T-score: -0.9. Z-score: 0.6 IMPRESSION: Osteopenia. *Comparison exams done prior to 11/2019 were performed on different unit, [email or web address]. COMPARISON: Compared with scan of 02/15/2022, the bone mineral density has increased by 4.3 percent at the spine and increased by 2.1 percent at the hip. FRAX 10-year Fracture Risk Major Osteoporotic Fracture: 8.9% Hip Fracture: 1.4% Reported Risk Factors: [place] () Neck BMD=0.649, BMI=36.3, previous fracture. WALDO SARAH M.D. Transcribed: 1:11 p.m. [email or web address] nitish/Dictated by: Waldo Sarah MD @ 12/20/2023 8:11:00 AM (Electronically Signed)
== END 2023-12-18 12:36 | disposition home or self-care (01) ==
LOC: RAD 12:35
PROVIDERS: PCP Internal Medicine; Visit Provider Physician Assistant
DX: M85.80 Other specified disorders of bone density and structure, unspecified site (principal); M85.89 Other specified disorders of bone density and structure, multiple sites; Z79.811 Long term (current) use of aromatase inhibitors
CPT/HCPCS: 77080

== ENCOUNTER 2024-01-21 07:17 | Day surgery (SDC) | payer MEDICARE, OTHER, SELFPAY ==
[2024-01-21] VITALS (13 sets, daily range): BP systolic 123–169; BP diastolic 65–95; PULSE 64–76; RESP 14–22; TEMP 36.1–36.7; O2SAT 88–98; BMI 31.9
--- OUTSIDE RECORDS SUMMARY | 2024-01-21 07:19 | XMS_ITS | Clinical Summary ---
Author Organization [facility] Address [place], [place] [address] Care Team Providers Care Chemic Mangler Name Role Phone Meaghan Cortez MD Primary Care Provider +1- [phone] Allergies Active Allergy Reactions Criticality Noted Date [...] Recently Relevant to Health Maintenance Care Teams Chemic Mangler Relationship Specialty Start Date End Date Meaghan Cortez MD [address] [place] [address] PCP - General 02/03/23
[2024-01-21] MEDS: CELECOXIB 200 MG CAPSULE PO (07:42)
[2024-01-21] MEDS: OXYCODONE (CR) 10 MG TAB.ER.12H PO (07:42)
[2024-01-21] MEDS: LACTATED RINGERS 1000 ML 1,000 ML 100 ML IV ×2 (07:45→10:03)
[2024-01-21] MEDS: ACETAMINOPHEN 500 MG TABLET 1000 MG PO (08:04)
[2024-01-21] MEDS: SODIUM CHLORIDE 0.9 % (FLUSH) 10 ML SYRINGE IVF (08:05)
[2024-01-21] MEDS: fentaNYL 100 MCG/2 ML inj IVP (08:58)
[2024-01-21] MEDS: MIDAZOLAM HCL 1 MG/ML inj IVP (08:58)
--- NOTE | 2024-01-21 09:06 | SUR.PREOP ---
TIME?OUT:?0858 PT/RN/MDA?VERIFICATION?OF?SURGICAL?SITE Right Shoulder,?PROCEDURE Nerve Block,?AND?CONSENT OBTAINED?PRIOR?TO?INVASIVE?PROCEDURE.
[2024-01-21] MEDS: CEFAZOLIN 2 GM INJ IVP (09:22)
[2024-01-21] MEDS: EPINEPHrine 1 MG in SODIUM CHLORIDE IRRIG SOLUTION 3,000 ML 9003 MG IRRIGATION ×3 (09:39→10:05)
--- NOTE | 2024-01-21 10:57 | PM.ORPRC ---
Procedure Note Date of procedure: 01/21/24 Procedure: PREOPERATIVE DIAGNOSIS: Right shoulder rotator cuff tear, AC joint arthrosis, biceps tendinopathy, degenerative labral tearing, subscap tearing POSTOPERATIVE DIAGNOSIS: Right shoulder rotator cuff tear, AC joint arthrosis, biceps tendinopathy, degenerative labral tearing, subscap tearing NAME OF OPERATION: Right shoulder arthroscopic subacromial decompression, distal clavicle excision, limited glenohumeral joint debridement, biceps tenodesis, mini open supraspinatus, infraspinatus and subscap repair SURGEON: Shiv Richards MD ASSISTANT FOOD SERVICE MANAGER: Tory Boyd PA-C ANESTHESIA: Supraclavicular block plus general endotracheal ESTIMATED BLOOD LOSS: 5 mL COMPLICATIONS: None SPECIMENS: None DRAINS: None PREOPERATIVE ANTIBIOTICS: Ancef 2 grams INDICATIONS: The patient is a 73-year-old with a history of right shoulder pain secondary to the above diagnoses. Despite appropriate non operative management, they continue to have symptoms. Operative intervention was recommended. The risks, benefits and expected outcomes were discussed in detail. These included but were not limited to: Infection, bleeding, injury to blood vessel or nerve, venous thromboembolism. All questions were answered to their satisfaction. PROCEDURE: A supraclavicular block was placed by Anesthesia. General anesthesia was administered. The patient was placed in the high beach chair position. The right shoulder was prepped and draped in the usual sterile fashion. The glenohumeral joint was infiltrated with 20 mL of normal saline with epinephrine. The posterior portal was established, the arthroscope was introduced. The anterior portal was established, Diagnostic arthroscopy was performed with findings as follows: The biceps has a significant amount of intra-articular tendinopathy. The anterior, posterior and superior labrum has age-appropriate degenerative tearing. Articular surfaces on the humeral head shows a focal area of grade 2/3 change centrally, more diffuse grade 2/3 foreign exchange services manager the inferior aspect of the glenoid. There are no loose bodies. There is a full-thickness tear of the supraspinatus and infraspinatus, tearing of the upper border of the subscap. The biceps was tenotomized with the arthroscopic scissors. The stump was debrided with the shaver. Unstable chondral flaps on the glenoid were debrided with a shaver. Likewise, the degenerative fraying of the labrum was debrided with the shaver. The arthroscope was placed in the subacromial space, the lateral portal was established. The Arthrex Harmony was used to dissect the acromion free. The CA ligament was recessed off the anterior acromion, the AC joint was exposed. The acromioplasty was performed with the bur in the posterior portal. The bur was then placed in the lateral portal and the lateral and anterior aspect of the acromion were resected. The undersurface of the distal clavicle was resected through the lateral portal. Finally, the bur was placed in the anterior portal and the remainder of the distal clavicle was resected for a total of 10 mm. An accessory anterolateral portal was placed. The subacromial/subdeltoid bursa was aggressively debrided. There is a full-thickness tear of the supraspinatus, infraspinatus and upper border of the subscap. Rotator cuff quality is rather poor. There is significant delamination throughout. Arthroscopic instruments were removed. The accessory anterolateral portal was extended proximally and distally, subcutaneous dissection was taken with electrocautery to the deltoid. The deltoid was divided in line with its fibers. The static retractor was placed. The subacromial/subdeltoid bursa was debrided with the Kelly scissors. The greater and lesser tuberosities were debrided to punctate bleeding bone using the arthroscopic bur and Lempert rongeur. A FiberTape was placed in an inverted mattress in the upper subscap. A FiberLink was placed in the biceps. The subscap repair and biceps tenodesis were completed with a SwiveLock anchor in the upper, lateral border of the lesser tuberosity, just proximal to the bicipital groove. Two margin convergence sutures were placed for repair of the supra and infraspinatus. Two Arthrex BioComposite SwiveLock anchors were placed just off the articular surface. Both limbs of the FiberWire and fiber tape were passed using the scorpion. A fiber link was placed in the leading edge of the rotator cuff x2. We tied the 2 central FiberWire sutures over the rotator cuff. We then proceeded with a lateral row of SwiveLock anchors x 2 crossing the FiberTape and incorporating the FiberWire and fiber link into each lateral row anchor. This provides a good repair of the rotator cuff. There is no tension on the repair with the shoulder at 0? abduction. The wound was irrigated with normal saline off the pump. The deltoid was repaired with an 0 Vicryl in an interrupted [id number] fashion. Subcutaneous tissues were closed with a 3-0 Vicryl. Skin was closed with a 3-0 Monocryl in a subcuticular fashion. A dry dressing and sling were applied. Sponge and needle counts were correct x2. The patient tolerated the procedure well. There were no apparent complications. They were carefully transferred to the hospital bed and taken to the postanesthesia care unit in satisfactory condition. PLAN: The patient will be discharged to home. No active range of motion of the shoulder will be allowed for 6 weeks postoperatively. They can work on active range of motion of the elbow, wrist and fingers. They will follow up in the office next week for a wound check and an AP and transscapular Y-view of the shoulder prior to being seen.
--- NOTE | 2024-01-21 11:18 | W.ANESCHARGE ---
Anesthesia Charges Start Date/Time Anesthesia Start Date: 01/21/24 Anesthesia Start Time: 09:09 Stop Date/Time Anesthesia Stop Date: 01/21/24 Anesthesia Stop Time: 11:29 Summary Extremes of Age - Over 70 or under 1: MDA
--- NOTE | 2024-01-21 11:19 | P.NB_ITS ---
Nerve Block Nerve Block Time Seen by Provider: 09:02 Date Seen: 01/21/24 Type of block requested by surgeon for post-operative analgesia: supraclavicular Side: right Time out performed: Yes Verification of patient name: Yes Verification of date of : Yes Site marking: site marked Name of person performing procedure: Sushil Continuous monitoring Was continuous monitoring of O2 sat, B/P, air sampling and monitoring, recorded every 15 minutes?: Yes Procedure Checklist: sterile prep, needles and gloves Ultrasound guided. Images saved: Yes Medications given in 5ml increments after negative aspiration: Ropivicaine %: 0.5 mL: 20 Needle gauge: 22 Decadron (mg): 10 Precedex (mcg): 25 Patient tolerated procedure well: Yes Block Charges Block Charge (with Pro Fee): Brachial Plexus Use of Ultrasound Machine for Block: Yes- US Guidance/pain block
--- NOTE | 2024-01-21 11:31 | W.ANESCHARGE ---
Anesthesia Charges Start Date/Time Anesthesia Start Date: 01/21/24 Anesthesia Start Time: 09:09 Stop Date/Time Anesthesia Stop Date: 01/21/24 Anesthesia Stop Time: 11:29 Summary Extremes of Age - Over 70 or under 1: OFFICE MANAGER EXECUTIVE ASSISTANT
== END 2024-01-21 13:07 | disposition home or self-care (01) ==
LOC: OR 07:18
PROVIDERS: PCP Internal Medicine; Visit Provider Orthopaedic Surgery
PROC: (CPT 23412; principal; 2024-01-21 09:00)
DX: M75.101 Unspecified rotator cuff tear or rupture of right shoulder, not specified as traumatic (principal); M19.011 Primary osteoarthritis, right shoulder; M75.21 Bicipital tendinitis, right shoulder; S43.431A Superior glenoid labrum lesion of right shoulder, initial encounter; G89.18 Other acute postprocedural pain
CPT/HCPCS: 29826; 29824; 29822; 23412; 23430; 01630; 64415; 76942; 99100; A9270; C1713; J0171; J0330; J0690; J1100; J2250; J2405; J2704; J2710; J2795; J3010; J7120

== ENCOUNTER 2024-03-06 07:51 | Outpatient (CLI) | payer MEDICARE, OTHER, SELFPAY ==
--- OUTSIDE RECORDS SUMMARY | 2024-03-06 07:56 | XMS_ITS | Clinical Summary ---
Author Organization [facility] Address [place], [place] [address] Care Team Providers Care Durability Engineer Name Role Phone Meaghan Cortez MD Primary Care Provider [phone] Allergies Active Allergy Reactions Criticality Noted Date [...] 02/03/2023 4:38 PM CDT Plan of Treatment Upcoming Encounters Date Type Department Care Team (Late st Contact Info) Description 03/06/2024 8:00 AM CDT Ancillary Procedure [facility] [address] [place] [address] Health Maintenance Due Date Last Done Comments [...] 2017 Mammogram for age 45-75 12/04/2019 12/03/2018 BMI (ht and wt on same day) for age 18+ 02/04/2024 02/03/2023 COVID-19 vaccine series ( season) 2024 01/11/2023, 02/26/2022, 10/27/2021, Additional history exists Influenza for age 65+ 02/09/2024 Procedures Procedure [...] is highly suspicious for malignancy. Rosalba Flores TAX AUDIT MANAGER MAMMO from Last 3 Months or Most Recently Relevant to Health Maintenance Care Teams Durability Engineer Relationship Specialty Start Date End Date Meaghan Cortez MD [address] [place] [address] PCP - General 02/03/23
== END 2024-03-06 07:52 | disposition home or self-care (01) ==
LOC: RAD 07:52
PROVIDERS: PCP Internal Medicine; Visit Provider Internal Medicine
DX: R01.1 Cardiac murmur, unspecified (principal); I34.0 Nonrheumatic mitral (valve) insufficiency
CPT/HCPCS: 93306

== ENCOUNTER 2024-07-07 14:30 | Outpatient (RCR) | payer MEDICARE, OTHER, SELFPAY ==
--- NOTE | 2024-06-18 10:59 | PT.OPEX ---
PT [place] Outpatient Eval PT [facility] Outpatient Eval Start: 06/18/24 07:48 Freq: Status: Active Protocol: Document 06/18/24 07:50 MANDO (Rec: 06/18/24 10:56 KLRhonda [id number]) E-signed By Keira Poon, PT Physical Therapy Outpatient Evaluation Insurance Information Recert Due Date 09/12/24 Insurance Name Medicare B Medical Diagnosis ITB syndrome, right Treating Diagnosis Right hip/leg pain, muscle tightness in thigh, muscle weakness Referring MD Cortez Subjective Subjective Judith reports to PT with primary complaint of right lateral hip and thigh pain with initial onset about 3-4 weeks ago. Gradual and insidious onset. She notes very sharp pain has subsided but still getting soreness. Also notes generally tight throughout lateral thigh and front of thigh with feeling of gravel tissue along the outside of her leg. Pain Comments 3-4/10 worst Date of Last Physician Visit 06/11/24 Current Work Status Retired Objective Other/Pertinent Objective Lui test: + B Angelo test: + B rectus femoris>psoas Hip ROM: WNL and equal B, just pain with end range hip flexion stretch on R LE Strength (R/L): -Knee Ext: R: 5/5, L: 5/5 -Knee Flex: R: 5/5, L: 5/5 -Hip Abd: R: 4/5, L: 4+/5 -Hip Add: R: 5/5, L: 5/5 -Hip Ext: R: 5/5, L: 5/5 -Hip Flx: R: 5/5, L: 5/5 TTP/increased tone R TFL and along R ITB Functional Test Performed & Score LEFS: 29/80 Assessment Assessment/Impression Patient is a 73 year old female presenting to physical therapy for evaluation and treatment of R lateral hip pain. Patient presents with ITB/TFL tightness and glut med weakness. These impairments are limiting the patients ability to sleep comfortably, walk for extended periods, squat/bend over, perform exercises in the pool, stand for extended periods. Patient appears motivated to participate in PT and presents with good prognosis to improve mobility, strength, proprioception and return to functional activities with skilled physical therapy intervention. Plan of Care Rehabilitation Potential Good Physical Therapy Goals In 4 visits: Pt will demonstrate WNL hip ROM without end range pain or tightness noted in order to perform all ADLs such as donning/doffing clothes and socks/shoes Pt will be able to squat/bend with 0/10 hip pain in order to carry out chores In 8 visits: Pt will exhibit 9 pt improvement in LEFS Outcome measure to demonstrate functional improvement and progress towards goals. Pt will be able to walk for extended periods and return to swimming based workouts with <1/10 hip pain in order to perform recreational activities and improve cardiovascular fitness Treatment Plan/Direct Interventions Gait Training,Ice/Cold/ Vasopneumatic,Joint Mobilization,Manual Therapy, Neuromuscular Re-ed,Self-Care/ Home Management,Therapeutic Activities,Therapeutic Exercises Frequency/Duration 1x/wk for 2-4 weeks with additional 2-4 sessions prn based on progress Patient Will Be Discharged From Therapy Completion of LTG(s), Independent w/HEP, Independently Progressing Evaluation Billing Untimed Code Treatment Minutes 20 Complexity Low Certification Information Initial Certification Date 06/18/24 Ending Certification Date 09/12/24 Provider Signature Required Yes Provider Signature Shows Agreement With POC & Medical Necessity Physician NPI Number Write NPI# Here Physician Comment/Change : Physician Signature & Date Requested Please Sign/Date Here
== END 2024-07-21 13:51 | disposition home or self-care (01) ==
PROVIDERS: PCP Internal Medicine; Visit Provider Internal Medicine
DX: M76.31 Iliotibial band syndrome, right leg (principal); M70.61 Trochanteric bursitis, right hip; M62.81 Muscle weakness (generalized); M62.9 Disorder of muscle, unspecified; M79.604 Pain in right leg; M25.551 Pain in right hip; Z51.89 Encounter for other specified aftercare
CPT/HCPCS: 97110; 97140; 97161

== ENCOUNTER 2024-07-08 13:40 | Outpatient (RCR) | payer MEDICARE, OTHER, SELFPAY ==
--- NOTE | 2024-07-03 13:25 | URNOTE ---
Received request for prior authorization for [employer] ([id number]). Pt has Medicare primary. Prior authorization is not required as services are based on medical necessity.
[2024-07-08 14:26] LABS: Calcium* 9.2 mg/dL (8.4-10.6); Creatinine* 0.8 mg/dL (0.5-1.5); Est. Creatinine Clearance* 46.43; Estimated Glomerular Filt Rate 79 ml/min
[2024-07-08] MEDS: ZOLEDRONIC ACID 4 MG in 0.9 % SODIUM CHLORIDE 100 ml 100 ML 420 MG IVPB (15:18)
== END 2025-01-04 23:59 | disposition home or self-care (01) ==
LOC: CCIC 13:40
PROVIDERS: Physician Assistant; PCP Internal Medicine; Referring Provider Internal Medicine; Visit Provider Internal Medicine Hematology & Oncology
DX: C50.412 Malignant neoplasm of upper-outer quadrant of left female breast (principal); Z17.0 Estrogen receptor positive status [ER+]; M85.80 Other specified disorders of bone density and structure, unspecified site; R25.2 Cramp and spasm
CPT/HCPCS: 36415; 82310; 82565; 96374; 99214; G0463; J3489

== ENCOUNTER 2024-07-21 13:00 | Outpatient (RCR) | payer MEDICARE, OTHER, SELFPAY ==
--- NOTE | 2024-02-11 14:20 | PT.OPEX ---
PT [place] Outpatient Eval PT [facility] Outpatient Eval Start: 02/11/24 07:59 Freq: Status: Active Protocol: Document 02/11/24 09:04 MANDO (Rec: 02/11/24 12:10 MANDO [id number]) E-signed By Keira Poon, PT Physical Therapy Outpatient Evaluation Insurance Information Recert Due Date 05/07/24 Insurance Name Medicare B Medical Diagnosis Right shoulder arthroscopic subacromial decompression, distal clavicle excision, limited glenohumeral joint debridement, biceps tenodesis, mini open supraspinatus, infraspinatus and subscap repair (01/21/24 Dr. Richards) Treating Diagnosis Right shoulder pain, limited shoulder ROM, gross UE weakness Referring MD Richards Subjective Subjective Judith is s/p 3 weeks right shoulder arthroscopic subacromial decompression, distal clavicle excision, limited glenohumeral joint debridement, biceps tenodesis, mini open supraspinatus, infraspinatus and subscap repair (01/21/24 Dr. Richards). She was in quite a bit of pain for the first week following surgery, requested more Percocet during appt with PA however has not needed this prescription since then. Currently just taking extra strength Tylenol every 6 hours . Compliant with sling use during activity during the day and sleeping. Does have a difficult time sleeping more than 4 hours and has to switch between wedge in bed and recliner often. She has list of questions about what she can and can not do at this time and generally worried about deconditioning d/t being more sedentary. She denies radicular symptoms and resolution of distal swelling in UE and LE. Goals are to be able to return to cooking, baking, yoga, pool classes, gardening. PMH: breast CA (L) with lumpectomy and radiation 2019, osteopenia Pain Comments -01/17 worst variable Date of Last Physician Visit 01/28/24 Current Work Status Retired Objective Other/Pertinent Objective PROM R: -flexion 60 -abduction 40 -ER0 neutral Intact to light touch throughout R UE Denies radicular symptoms MMT deferred d/t s/p Functional Test Performed & Score QuickDASH: 84.1/100 Assessment Assessment/Impression Pt presents with signs and symptoms consistent with s/p 3 weeks R RCR (supra/infra/ subscap), SAD, DCE, bicep tenodesis. DOS: 01/21/24. Anticipated deficits/ impairments in pain, ROM, and strength. Pt would benefit from skilled PT interventions to facilitate return to PLOF and reaching, dressing, bathing, lifting, pressing and recreational activities such as yoga, gardening, pool classes. Plan of Care Rehabilitation Potential Good Physical Therapy Goals Improve ER0 to 20 to improve ease of transfers and ADL's, by 8 weeks post op. Improve FF tolerance to increase ease of ADL's /daily care, by 6 weeks post op. Pt will tolerate gradual progression of AROM to facilitate progression through POC, by 8 weeks post op. Patient will exhibit full shoulder ROM, in order to facilitate greater ease with ADLs and progression through POC, by 12 weeks post op. Pt will exhibit RC and Scapular Stab strength of 5/5 to allow progression back to normal and desired activities without pain, by 20 weeks post op. Patient will be independent in self-management of shoulder and shoulder related symptoms, by 20 weeks post op. Patient will gradually return to recreational activities such as yoga, swimming, gardening between 6-12 months post op Treatment Plan/Direct Interventions Ice/Cold/Vasopneumatic,Joint Mobilization,Manual Therapy, Neuromuscular Re-ed,Self-Care/ Home Management,Therapeutic Activities,Therapeutic Exercises Frequency/Duration 1-2 times per week over 6 months Patient Will Be Discharged From Therapy Completion of LTG(s), Independent w/HEP, Independently Progressing Evaluation Billing Untimed Code Treatment Minutes 25 Complexity Low Certification Information Initial Certification Date 02/11/24 Ending Certification Date 05/07/24 Provider Signature Required Yes Provider Signature Shows Agreement With POC & Medical Necessity Physician NPI Number Write NPI# Here Physician Comment/Change : Physician Signature & Date Requested Please Sign/Date Here
--- NOTE | 2024-07-08 09:02 | PT.OPDNX ---
PT [place] Outpatient Daily Note PT [facility] Outpatient Daily Note Start: 02/11/24 07:59 Freq: Status: Active Protocol: Document 07/07/24 14:31 MANDO (Rec: 07/07/24 16:16 MANDO [id number]) E-signed By Keira Poon, PT PT [facility] Daily Progress Note Visit Information Note Type Recert/Progress Note Visit Number [id number] Physician Authorized Visits Eval and treat Insurance Information Recert Due Date 10/02/24 Insurance Name Medicare B Medical Diagnosis Right shoulder arthroscopic subacromial decompression, distal clavicle excision, limited glenohumeral joint debridement, biceps tenodesis, mini open supraspinatus, infraspinatus and subscap repair (01/21/24 Dr. Richards) Treating Diagnosis Right shoulder pain, limited shoulder ROM, gross UE weakness Referring MD Richards Subjective Subjective Judith is s/p 5 months right shoulder arthroscopic subacromial decompression, distal clavicle excision, limited glenohumeral joint debridement, biceps tenodesis, mini open supraspinatus, infraspinatus and subscap repair (01/21/24 Dr. Richards). Main limitation at this time is repetitive reaching overhead and end range mobility overhead continues to be difficult with mild to moderate pain. Pain Comments 1-4/10 worst variable with overhead movements/positions Date of Next Physician Visit 04/20/24 Date of Surgery (If applicable) 01/21/24 Objective Other/Pertinent Objective AROM R: -flexion 158 -scaption 152 -ER0 57 -functional IR T10 MMT: R -flex 4/5 -abd 5-/5 -ER0 5-/5 -ER90 4/5 -IR 90 4/5 -IR0 5/5 Functional Test Performed & Score QuickDASH IE: 84.1/100 QuickDASH 07/07/24: 15.9/100 Patient Instructed in Risks/Benefits Yes Therapeutic Exercise Therapeutic Exercise Minutes (minutes) 42 Therapeutic Exercise: To Restore Reassessment of objective Functional Status measures Review of current HEP Supine snow angels Flexion 90/90 ER stretch w/SEC Supported abd 90/90 ER Treatment Minutes Timed Code Treatment Minutes 42 Total Treatment Time 42 Billing Units Therapeutic Exercise Units 3 Assessment/Impression Assessment/Impression Pt presents with signs and symptoms consistent with s/p 5 months R RCR (supra/infra/ subscap), SAD, DCE, bicep tenodesis. DOS: 01/21/24. Current AROM is 158 FF and 152 scaption, IR up to T10. Most notable impairments are ER90 ROM and strength which was addressed this date with progression of HEP. These ROM and strength deficits limit her functional capacity with repetitive reaching and lifting overhead including placing objects high on a shelf and washing mirrors/ windows overhead. She is making most notable gains in ER0 strength. Pt would benefit from 3-4 more sessions to address remaining overhead activity challenges and anticipate this to improve with progression of strength training over the next few sessions. Primary Functional Limitations repetitive reaching and lifting overhead including placing objects high on a shelf and washing mirrors/ windows overhead Plan of Care Physical Therapy Goals Improve ER0 to 20 to improve ease of transfers and ADL's, by 8 weeks post op. MET Improve FF tolerance to increase ease of ADL's /daily care, by 6 weeks post op. MET Pt will tolerate gradual progression of AROM to facilitate progression through POC, by 8 weeks post op. MET Patient will exhibit full shoulder ROM, in order to facilitate greater ease with ADLs and progression through POC, by 12 weeks post op. Progressing towards: remains stiff at very end range abd and ER90 positions. Goal changed to be addressed by 7 months post-op Pt will exhibit RC and Scapular Stab strength of 5/5 to allow progression back to normal and desired activities without pain, by 20 weeks post op. Progressing towards. Goal changed to be addressed by 7 months post-op Patient will be independent in self-management of shoulder and shoulder related symptoms, by 20 weeks post op. Progressing towards Patient will gradually return to recreational activities such as yoga, swimming, gardening between 6-12 months post op Progressing towards Daily Plan of Care Change in Frequency Daily Plan of Care Comments She remains appropriate for 3- 4 more PT sessions Recertification Information Initial Certification Date 02/11/24 Recertification Start Date 07/07/24 Recertification Due Date 10/02/24 Reasons to Continue Skilled Therapy Remaining deficits include: repetitive reaching and lifting overhead including placing objects high on a shelf and washing mirrors/ windows overhead Rehabilitation Potential Excellent Continued Plan of Care and Interventions Continued therapeutic exercise , neuromuscular re-education Provider Signature Shows Agreement With POC & Medical Necessity Physician Comment/Change Comment or Changes Physician NPI Number #
== END 2024-07-21 13:50 | disposition home or self-care (01) ==
PROVIDERS: PCP Internal Medicine; Visit Provider Orthopaedic Surgery
DX: Z98.890 Other specified postprocedural states (principal); M25.511 Pain in right shoulder; Z74.09 Other reduced mobility; R53.1 Weakness; Z51.89 Encounter for other specified aftercare
CPT/HCPCS: 93306; 97110; 97140; 97161; 97535

== ENCOUNTER 2024-12-18 09:31 | Outpatient (CLI) | payer MEDICARE, OTHER, SELFPAY | END 2024-12-18 09:32 | disposition home or self-care (01) | LOC: NFLDUCREF 09:32 | PROVIDERS: PCP Internal Medicine | DX: R10.32 Left lower quadrant pain (principal) | CPT/HCPCS: 87086 ==

== ENCOUNTER 2024-12-22 08:20 | Outpatient (CLI) | payer MEDICARE, OTHER, SELFPAY | END 2024-12-22 08:21 | disposition home or self-care (01) | LOC: NFLDREF 12-24 12:56 | PROVIDERS: PCP Internal Medicine; Referring Provider Internal Medicine; Visit Provider Internal Medicine | DX: R73.03 Prediabetes (principal); M85.80 Other specified disorders of bone density and structure, unspecified site; Z13.6 Encounter for screening for cardiovascular disorders | CPT/HCPCS: 80061; 82306; 82947 ==

== ENCOUNTER 2025-01-28 08:03 | Outpatient (CLI) | payer MEDICARE, OTHER, SELFPAY ==
--- NOTE | 2025-01-28 08:15 | CRLHL7_ITS ---
For Patients: As a result of the Century Cures Act, medical imaging exams and procedure reports are released immediately into your electronic medical record. You may view this report before your referring provider. If you have questions, please contact your health care provider. INDICATION: BILATERAL SCREENING MAMMOGRAM, ASYMPTOMATIC 74 Y/O FEMALE COMPARISON: 12/09/2023, 04/02/2023, 09/06/2022 TECHNIQUE: Digital mammogram in CC and MLO projections including computer-aided detection (CAD) and tomosynthesis. BREAST COMPOSITION: There are scattered areas of fibroglandular density. FINDINGS: No suspicious findings. There are post-surgical changes of the left breast. ASSESSMENT: BI-RADS 2 Benign RECOMMENDATION: Annual screening mammogram. A lay language report of this examination will be provided to the patient. Dictated by: Adelaida Huston MD @ 01/29/2025 22:11:29 (Electronically Signed)
== END 2025-01-28 08:04 | disposition home or self-care (01) ==
LOC: MAMMO 08:04
PROVIDERS: PCP Internal Medicine; Visit Provider Physician Assistant
DX: Z12.31 Encounter for screening mammogram for malignant neoplasm of breast (principal)
CPT/HCPCS: 77063; 77067